=== PATIENT | female | born 1975 | race African-American/Black ===

== ENCOUNTER 2020-08-21 11:41 | Inpatient (IN) | payer OTHER ==
[~2020-08-21] VITALS: Ht 165.1 cm; Wt 117.1 kg
[2020-08-21] VITALS (17 sets, daily range): BP systolic 116–150; BP diastolic 76–93
[2020-08-21 12:12] LABS: URINE BILIRUBIN NEGATIVE (Negative); URINE BLOOD TRACE (Negative); URINE CLARITY SL CLOUDY; URINE COLOR YELLOW; URINE GLUCOSE-RANDOM* 3+ (Negative); URINE KETONES TRACE (Negative); URINE PROTEIN (DIPSTICK) TRACE (Negative); URINE UROBILINOGEN 0.2 E.U./dl (0.2-1.0)
[2020-08-21 12:13] LABS: URINE LEUKOCYTES-REFLEX 1+ (Negative); URINE NITRITE-REFLEX POSITIVE (Negative)
[2020-08-21 12:20] LABS: SQUAMOUS 0-3 Few /LPF (0-3)
[2020-08-21 12:21] LABS: BACTERIA-REFLEX 1-9 Few /HPF (None Seen); CASTS None Seen /LPF (None Seen); CRYSTALS None Seen /LPF (None Seen); URINE RBC 0-2 Rare /HPF (0-2); YEAST-REFLEX Present (None Seen)
[2020-08-21 13:26] LABS: CALCIUM 10.2 mg/dL (8.5-10.1); CREATININE 1.1 mg/dL (0.6-1.0); POTASSIUM 4.8 mmol/L (3.5-5.1)
[2020-08-21 13:27] LABS: HEMATOCRIT 36.9 % (37.0-47.0); HEMOGLOBIN 11.2 gm/dL (12.0-15.0); MCH 18.6 pg (26.0-34.0); MCHC 30.3 g/dL (28.0-37.0); MCV 61.5 fL (80.0-100.0); PLATELET COUNT 315 thou/uL (150-400); RDW 21.5 % (10.5-14.5); WBC 7.7 thou/uL (4.0-11.0)
[2020-08-21 13:32] LABS: ALBUMIN 3.9 g/dL (3.4-5.0); BE(vivo) 0.1 mmol/L (-2 to +3); HCO3 25.9 mmol/L (22.0-26.0); PCO2 VENOUS 46.2 mmHg (41.0-51.0); PO2 VENOUS 38.4 mmHg (35.0-45.0); TOTAL BILIRUBIN 0.4 mg/dL (0.2-1.0); TOTAL PROTEIN 8.5 g/dL (6.4-8.2)
[2020-08-21 13:54] LABS: ANISOCYTOSIS 2+; PLATELET ESTIMATE NORMAL
[2020-08-21 13:55] LABS: MICROCYTES 2+
[2020-08-21 16:55] LABS: ALBUMIN 3.7 g/dL (3.4-5.0); TOTAL PROTEIN 9.1 g/dL (6.4-8.2)
[2020-08-21 17:20] LABS: TSH 1.128 uIU/mL (0.358-3.740)
--- NOTE | 2020-08-21 18:40 | NUR ---
PATIENT ADMITTED VIA THE ER. PT IS A GCS OF 15. SHE DENIES PAIN OR DISCOMFORT. SHE ION INSULIN GTT. PT DENIES ANY CONCERNS AT THIS TIME. PT HAS BEEN SETTLED IN ROOM AND PHYSICIAN ALREADY SAW THE PATIENT IN ER
[2020-08-21 20:45] LABS: CALCIUM 9.3 mg/dL (8.5-10.1); CREATININE 1.1 mg/dL (0.6-1.0); POTASSIUM 3.9 mmol/L (3.5-5.1)
[2020-08-22] VITALS (35 sets, daily range): BP systolic 115–147; BP diastolic 60–91
[2020-08-22 04:06] LABS: GLYCOHEMOGLOBIN (HGB A1C) 10.7 % (4.8-5.6)
--- NOTE | 2020-08-22 04:56 | NUR ---
Assumed pt care at 1900. Pt is alert and oriented. No sign of distress noted. Pt is lying in bed. Pt is ambulatory. Blood sugar obtained. Pt is ambulatory. Vital sign is stable but with elevated heart. Tachycardia noted with activity. Assessment completed and documented. Scheduled meds administered to pt. Denies pain. No acute events overnight. Continue to monitor. No further needs at this time.
[2020-08-22] MEDS ORDERED: LEVOFLOXACIN500 MG PO (11:52)
[2020-08-22] MEDS ORDERED: LANTUS SUBQ (11:53)
[2020-08-22] MEDS ORDERED: GLUMETZA500 PO (11:54)
[2020-08-22] MEDS ORDERED: FLAGYL500 M1 PO (11:56)
== END 2020-08-22 13:45 | disposition home or self-care (01) | DRG 638 ==
LOC: ER 11:41 → EROBS 15:05 → ICU 16:59
PROVIDERS: Emergency Medicine; Nurse Practitioner Family; Physician Assistant; ADMIT Internal Medicine; ATTEND Internal Medicine
DX: E11.10 Type 2 diabetes mellitus with ketoacidosis without coma (principal); N39.0 Urinary tract infection, site not specified; Z68.41 Body mass index [BMI] 40.0-44.9, adult; B37.3 Candidiasis of vulva and vagina; E66.9 Obesity, unspecified; Z79.899 Other long term (current) drug therapy
CPT/HCPCS: 10078

== ENCOUNTER 2020-08-26 19:57 | Emergency (ER) | payer OTHER ==
[~2020-08-26] VITALS: Ht 165.1 cm; Wt 117.0 kg
[~2020-08-26 19:57] MED LIST: FLAGYL500 M1 PO; GLUMETZA500 PO; LANTUS SUBQ; LEVOFLOXACIN500 MG PO
[2020-08-26 21:37] LABS: HEMOGLOBIN 10.6 gm/dL (12.0-15.0); MCH 18.7 pg (26.0-34.0); MCHC 30.2 g/dL (28.0-37.0); MCV 62.1 fL (80.0-100.0); PLATELET COUNT 283 thou/uL (150-400); RBC 5.64 mil/uL (4.20-5.00); RDW 22.1 % (10.5-14.5); WBC 9.2 thou/uL (4.0-11.0)
[2020-08-26 21:38] LABS: URINE BILIRUBIN NEGATIVE (Negative); URINE BLOOD 3+ (Negative); URINE CLARITY CLOUDY; URINE COLOR YELLOW; URINE GLUCOSE-RANDOM* NEGATIVE (Negative); URINE KETONES TRACE (Negative); URINE NITRITE-REFLEX NEGATIVE (Negative); URINE PROTEIN (DIPSTICK) NEGATIVE (Negative); URINE UROBILINOGEN 0.2 E.U./dl (0.2-1.0)
[2020-08-26 21:39] LABS: URINE LEUKOCYTES-REFLEX 2+ (Negative)
[2020-08-26 21:49] LABS: BACTERIA-REFLEX 1-9 Few /HPF (None Seen); CASTS None Seen /LPF (None Seen); CRYSTALS None Seen /LPF (None Seen); SQUAMOUS 0-3 Few /LPF (0-3); URINE RBC >20 Many /HPF (0-2); URINE WBC-REFLEX 0-5 Rare /HPF (0-5)
[2020-08-26 21:50] LABS: CALCIUM 9.2 mg/dL (8.5-10.1); CREATININE 0.9 mg/dL (0.6-1.0); POTASSIUM 4.1 mmol/L (3.5-5.1)
[2020-08-26 21:54] LABS: ALBUMIN 3.2 g/dL (3.4-5.0); TOTAL BILIRUBIN 0.3 mg/dL (0.2-1.0); TOTAL PROTEIN 7.9 g/dL (6.4-8.2)
[2020-08-26 22:15] LABS: ABSOLUTE NEUTROPHILS 5.3 thou/uL (1.4-8.2); ANISOCYTOSIS 2+; MICROCYTES 2+; POLYCHROMASIA SLIGHT
[2020-08-26 22:16] LABS: HYPOCHROMASIA 2+
[2020-08-26] MEDS ORDERED: NORCO 5-325 TA1 EAC2 PO (23:32)
[2020-08-26] MEDS ORDERED: KEFLEX500 M1 PO (23:32)
[2020-08-26 23:42] VITALS: BP 147/89
== END 2020-08-26 23:50 | disposition home or self-care (01) ==
LOC: ER 19:57
PROVIDERS: Emergency Medicine
DX: D25.9 Leiomyoma of uterus, unspecified (principal); N39.0 Urinary tract infection, site not specified; Z79.4 Long term (current) use of insulin; Z79.899 Other long term (current) drug therapy